=== PATIENT | female | born 1960 | race Caucasian/White ===

== ENCOUNTER → 2016-11-29 | Outpatient (CLI) | payer OTHER ==
[~2016-11-29] MED LIST: ALPR0.25 PO; MILK250C2 PO; NADO20TA PO; OXYC-68 PO; RIFA550 PO; SPIR50TA21 PO; STOO100T PO; ZOLP10TA3 PO
--- NOTE | 2016-11-29 14:59 | RADRPT ---
EXAM DATE/TIME: 11/29/2016 13:11 [place] COMPARISON: No previous studies available for comparison. EXTERNAL COMPARISON : [facility], CT ABDOMEN & PELVIS, January 13, 2012. [facility], MR ABDOMEN W & W/O CONTRA ST, January 20, 2012. INDICATIONS : Cirrhosis. MEDICAL HISTORY : Cirrhosis. Diverticulitis. Arthritis. ETOH use. SURGICAL HISTORY : Cholecystectomy. Tubal ligation. Colostomy. ENCOUNTER: Initial ACUITY: 3 months PAIN SCORE: 5/10 LOCATION: Abdomen. MEASUREMENTS: LIVER: 16.6 cm length COMMON DUCT: 3 mm RIGHT KIDNEY: 9.9 x 6.1 x 5.9 cm LEFT KIDNEY: 11.5 x 5.1 x 5.6 cm SPLEEN: 12.0 cm length AORTA: 2.4cm maximal FINDINGS: LIVER: There is diffuse increased echogenicity throughout the entire liver. No dilated biliary ducts. The po rtal system appears patent. No evidence of ascites. COMMON DUCT: No intraluminal mass or stone visualized. GALLBLADDER: Surgically removed. PANCREAS: Not visualized. RIGHT KIDNEY: No hydronephrosis, stone or mass. LEFT KIDNEY: No hydronephrosis, stone or mass. SPLEEN: No focal lesion. AORTA: Non aneurysmal. IVC: Within normal limits. CONCLUSION: 1. Diffuse fatty infiltration of the liver. No biliary tract obstruction. 2. No evidence of ascites. 3. Pancreas not visualized. Jose Luis Tom MD on November 29, 2016 at 14:56 Board Certified Radiologist. This report was verified electronically.
== END ==
LOC: HRAD 12:09
PROVIDERS: ATTEND Internal Medicine Gastroenterology
DX: K74.60 Unspecified cirrhosis of liver (principal)
CPT/HCPCS: 76700